=== PATIENT | female | born 2000 | race Caucasian/White ===

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

== ENCOUNTER → 2020-01-01 16:46 | Outpatient (BNVA) | payer MEDICAID, SELFPAY | PROVIDERS: Visit Provider Nurse Practitioner | DX: Z20.828 Contact with and (suspected) exposure to other viral communicable diseases (principal) | CPT/HCPCS: 87635 ==

== ENCOUNTER → 2020-01-09 09:21 | Outpatient (BNVA) | payer MEDICAID, SELFPAY | PROVIDERS: Visit Provider Nurse Practitioner Psychiatric/Mental Health | DX: F41.1 Generalized anxiety disorder (principal) | CPT/HCPCS: G0463 ==

== ENCOUNTER → 2020-01-18 08:27 | Outpatient (BNVA) | payer MEDICAID, SELFPAY | PROVIDERS: Visit Provider Counselor Professional | DX: F33.1 Major depressive disorder, recurrent, moderate (principal) | CPT/HCPCS: 90834 ==

== ENCOUNTER → 2020-01-25 08:03 | Outpatient (BNVA) | payer MEDICAID, SELFPAY | PROVIDERS: Visit Provider Counselor Professional | DX: F33.1 Major depressive disorder, recurrent, moderate (principal); F41.1 Generalized anxiety disorder | CPT/HCPCS: 90834 ==

== ENCOUNTER → 2020-02-08 08:36 | Outpatient (BNVA) | payer MEDICAID, SELFPAY | PROVIDERS: Visit Provider Counselor Professional | DX: F33.1 Major depressive disorder, recurrent, moderate (principal); F41.1 Generalized anxiety disorder | CPT/HCPCS: 90834 ==

== ENCOUNTER → 2020-02-12 11:53 | Outpatient (BNVA) | payer MEDICAID, SELFPAY | PROVIDERS: Visit Provider Nurse Practitioner Family | DX: R10.84 Generalized abdominal pain (principal) | CPT/HCPCS: 80053; 81000; 85025 ==

== ENCOUNTER 2020-02-19 08:40 | Outpatient (CLI) | payer MEDICAID, SELFPAY ==
--- NOTE | 2020-02-19 08:45 | US_ITS ---
WS: [id number] ULTRASOUND ABDOMEN LIMITED CLINICAL INFORMATION: abdominal pain, worst RUQ, 1 month post delivery COMPARISON: None. FINDINGS: Liver Size: Slightly enlarged Craniocaudal length: 16.2 cm. Echogenicity: Normal. Surface nodularity: None. Mass (size and location): None. Bile ducts Intrahepatic ducts: Normal. Common bile duct diameter: 0.4 cm. Gallbladder Normal. Gallstones: None. Gallbladder sludge: None. Gallbladder wall thickening: None. Pericholecystic fluid: None. Sonographic Vee sign: Absent. Pancreas Normal as visualized. Right kidney: Normal. Hydronephrosis: None. Size: 9.9 cm x 5.3 cm x 4.0 cm. Abdominal aorta and IVC Visualized portions are normal. Ascites: None. US/US gall bladder [id number] IMPRESSION: 1. Mild hepatomegaly measuring 16.2 CM. 2. Normal gallbladder. Normal common bile duct. 3. No hydronephrosis in right kidney.
== END 2020-02-19 08:41 | disposition home or self-care (01) ==
LOC: RAD 08:43
PROVIDERS: PCP Nurse Practitioner; Visit Provider Nurse Practitioner Family
DX: R10.11 Right upper quadrant pain (principal); R16.0 Hepatomegaly, not elsewhere classified
CPT/HCPCS: 76705

== ENCOUNTER → 2020-02-22 08:24 | Outpatient (BNVA) | payer MEDICAID, SELFPAY | PROVIDERS: PCP Nurse Practitioner; Visit Provider Counselor Professional | DX: F33.1 Major depressive disorder, recurrent, moderate (principal); F41.1 Generalized anxiety disorder | CPT/HCPCS: 90834 ==

== ENCOUNTER → 2020-02-28 08:37 | Outpatient (BNVA) | payer MEDICAID, SELFPAY | PROVIDERS: PCP Nurse Practitioner; Visit Provider Counselor Professional | DX: F33.1 Major depressive disorder, recurrent, moderate (principal); F41.1 Generalized anxiety disorder | CPT/HCPCS: 90834 ==

== ENCOUNTER → 2020-03-12 08:10 | Outpatient (BNVA) | payer MEDICAID, SELFPAY | PROVIDERS: PCP Nurse Practitioner; Visit Provider Counselor Professional | DX: F33.1 Major depressive disorder, recurrent, moderate (principal); F41.1 Generalized anxiety disorder | CPT/HCPCS: 90834 ==

== ENCOUNTER → 2020-03-20 08:52 | Outpatient (BNVA) | payer MEDICAID, SELFPAY | PROVIDERS: PCP Nurse Practitioner; Visit Provider Counselor Professional | DX: F33.1 Major depressive disorder, recurrent, moderate (principal); F41.1 Generalized anxiety disorder | CPT/HCPCS: 90832 ==

== ENCOUNTER → 2020-04-17 08:11 | Outpatient (BNVA) | payer MEDICAID, SELFPAY | PROVIDERS: PCP Nurse Practitioner; Visit Provider Counselor Professional | DX: F33.1 Major depressive disorder, recurrent, moderate (principal); F41.1 Generalized anxiety disorder | CPT/HCPCS: 90832 ==

== ENCOUNTER → 2020-05-06 09:36 | Outpatient (BNVA) | payer MEDICAID, SELFPAY | PROVIDERS: PCP Nurse Practitioner; Visit Provider Counselor Professional | DX: F33.1 Major depressive disorder, recurrent, moderate (principal); F41.1 Generalized anxiety disorder | CPT/HCPCS: 90832 ==

== ENCOUNTER → 2020-05-27 08:53 | Outpatient (BNVA) | payer MEDICAID, SELFPAY | PROVIDERS: PCP Nurse Practitioner; Visit Provider Counselor Professional | DX: F33.1 Major depressive disorder, recurrent, moderate (principal); F41.1 Generalized anxiety disorder | CPT/HCPCS: 90832; 90834 ==

== ENCOUNTER → 2020-06-05 15:12 | Outpatient (BNVA) | payer MEDICAID, SELFPAY | PROVIDERS: PCP Nurse Practitioner; Visit Provider Counselor Professional | DX: F33.1 Major depressive disorder, recurrent, moderate (principal); F41.1 Generalized anxiety disorder | CPT/HCPCS: 90834 ==

== ENCOUNTER 2020-06-13 09:20 | Outpatient (CLI) | payer MEDICAID, SELFPAY ==
--- NOTE | 2020-06-13 09:27 | NM_ITS ---
WS: [id number] NUCLEAR MEDICINE HIDA SCAN CLINICAL INFORMATION: GENERALIZED ABDOMINAL PAIN/DIARRHEA TECHNIQUE: Following intravenous administration of 7.5 mCi of technetium 99m mebrofenin, images of th e abdomen were obtained over the course of 60 minutes. Next, gallbladder ejection fraction was determ ined by obtaining preprandial and one-hour postprandial images of the gallbladder following oral melanie stion of Ensure. COMPARISON: None. FINDINGS: Normal hepatic uptake at 5 minutes. Normal hepatic excretion. Gallbladder is visualized by 10 minutes . No evidence of acute cholecystitis. Normal common bile duct and small bowel activity. No evidence o f choledocholithiasis. Gallbladder ejection fraction 46% within normal limits. No evidence of chronic cholecystitis. NM/NM hepatobiliary w phar* [id number] IMPRESSION: 1. No evidence of acute or chronic cholecystitis. 2. Gallbladder ejection fraction 46% within normal limits.
== END 2020-06-13 09:21 | disposition home or self-care (01) ==
LOC: NM 09:21
PROVIDERS: PCP Nurse Practitioner; Visit Provider Nurse Practitioner Family
DX: R10.84 Generalized abdominal pain (principal); R19.7 Diarrhea, unspecified
CPT/HCPCS: 78227; A9537

== ENCOUNTER → 2020-06-19 08:44 | Outpatient (BNVA) | payer MEDICAID, SELFPAY | PROVIDERS: PCP Nurse Practitioner; Visit Provider Counselor Professional | DX: F33.1 Major depressive disorder, recurrent, moderate (principal); F41.1 Generalized anxiety disorder | CPT/HCPCS: 90832 ==

== ENCOUNTER → 2020-10-31 13:04 | Outpatient (BNVA) | payer MEDICAID, SELFPAY | PROVIDERS: PCP Nurse Practitioner; Visit Provider Counselor Professional | DX: F33.1 Major depressive disorder, recurrent, moderate (principal); F41.1 Generalized anxiety disorder | CPT/HCPCS: 90834 ==

== ENCOUNTER → 2021-09-10 09:27 | Outpatient (BNVA) | payer MEDICAID, SELFPAY | PROVIDERS: PCP Nurse Practitioner; Visit Provider Nurse Practitioner Family | DX: R05.9 Cough, unspecified (principal); J30.89 Other allergic rhinitis; G43.909 Migraine, unspecified, not intractable, without status migrainosus | CPT/HCPCS: 87635; 87801 ==

== ENCOUNTER → 2022-10-09 15:09 | Outpatient (BNVA) | payer BC, OTHER, SELFPAY | PROVIDERS: PCP Nurse Practitioner Family; Visit Provider Nurse Practitioner Family | DX: R39.9 Unspecified symptoms and signs involving the genitourinary system (principal) | CPT/HCPCS: 81003 ==

== ENCOUNTER → 2023-05-06 14:12 | Outpatient (BNVA) | payer BC, MEDICAID, SELFPAY | PROVIDERS: PCP Nurse Practitioner Family; Visit Provider Nurse Practitioner Family | DX: R50.9 Fever, unspecified (principal) | CPT/HCPCS: 87400 ==

== ENCOUNTER → 2023-10-20 11:42 | Outpatient (BNVA) | payer BC, SELFPAY | PROVIDERS: PCP Nurse Practitioner Family; Visit Provider Nurse Practitioner | DX: J02.9 Acute pharyngitis, unspecified (principal) | CPT/HCPCS: 87070; 87880 ==

== ENCOUNTER 2023-10-30 11:27 | Emergency (ER) | payer BC, SELFPAY ==
[2023-10-30 11:37] VITALS: BP 99/67; PULSE 116; RESP 16; TEMP 37.8; O2SAT 100; BMI 23.3
--- NOTE | 2023-10-30 11:42 | CTR_ITS ---
PROCEDURE INFORMATION: Exam: CT Abdomen And Pelvis With Contrast Exam date and time: 10/30/2023 12:30 PM Age: 22 years old Clinical indication: Abdominal pain; Generalized; Additional info: Abd pain TECHNIQUE: Imaging protocol: Computed tomography of the abdomen and pelvis with contrast. Radiation optimization: All CT scans at this facility use at least one of these dose optimization techniques: automated exposure control; mA and/or kV adjustment per patient size (includes targeted exams where dose is matched to clinical indication); or iterative reconstruction. Contrast material: OMNI 350; Contrast volume: 100 ml; Contrast route: INTRAVENOUS (IV); COMPARISON: CT abdomen pelvis w con* [id number] 01/07/2019 3:40 PM RADIATION DOSE METRICS: Total DLP (mGy-cm): 357.59 FINDINGS: Liver: Normal. No mass. Gallbladder and biliary ducts: Cholecystectomy. Pancreas: Normal. No ductal dilation. Spleen: 12 cm borderline splenomegaly. Adrenal glands: Normal. No mass. Kidneys and ureters: Normal. No hydronephrosis. Stomach and bowel: There is thickening of the wall of the entire colon from cecum to rectosigmoid. A mild diffuse colitis is present. Appendix: No evidence of appendicitis. Intraperitoneal space: Unremarkable. No free air. No significant fluid collection. Vasculature: Unremarkable. No abdominal aortic aneurysm. Lymph nodes: Unremarkable. No enlarged lymph nodes. Urinary bladder: Unremarkable as visualized. Reproductive: Unremarkable as visualized. Bones/joints: Unremarkable. No acute fracture. Soft tissues: Unremarkable. CT/CT abdomen pelvis w con* [id number] IMPRESSION: Mild diffuse colitis.
--- NOTE | 2023-10-30 11:42 | XRR_ITS ---
PROCEDURE INFORMATION: Exam: XR Chest Exam date and time: 10/30/2023 12:20 PM Age: 22 years old Clinical indication: Cough and dyspnea; Additional info: Dyspnea/cough TECHNIQUE: Imaging protocol: Radiologic exam of the chest. Views: 1 view. COMPARISON: CR XR chest 2V* [id number] 02/04/2017 9:51 PM FINDINGS: Lungs: Unremarkable. No consolidation. Pleural spaces: Unremarkable. No pleural effusion. No pneumothorax. Heart/Mediastinum: Unremarkable. No cardiomegaly. Bones/joints: Unremarkable. XR/XR chest 1V portable [id number] IMPRESSION: No acute findings.
[2023-10-30 12:01] LABS: Basophils % 0.2 %; Eosinophils % 0.3 %; Lymphocytes # 0.7 10^3/uL (0.8-4.8); Lymphocytes % 5.3 %; Mean Corpuscular HGB Conc 31.8 g/dL (30-55); Mean Corpuscular Hemoglobin 29.8 pg (27-33); Mean Corpuscular Volume 93.6 fl (85-98); Mean Platelet Volume 11.8 fL (7.4-10.4); Monocytes # 1.2 10^3/uL (0.2-0.9); Monocytes % 9.4 %; Neutrophils # 10.31 10^3/uL (1.8-7.7); Neutrophils % 84.5 %; Nucleated Red Blood Cells % 0 %; Platelet Count 193 10^3/cmm (157-399); Red Cell Distribution Width 11.7 % (12.1-15.1); White Blood Count 12.22 10^3/uL (3.29-11.43)
--- NOTE | 2023-10-30 12:11 | ED_ITS ---
HPI - Abdominal Pain 2 General: Chief Complaint: Abdominal Pain Stated Complaint: abd pain Time Seen by Provider: 10/30/23 11:42 Source: patient Mode of arrival: ambulatory History of Present Illness: 22-year-old female presents emergency ro om complaining of abdominal pain. She also had some bright red blood in the stools. Began last night she had the abdominal pain for 2 to 3 days prior. She also had a fever at home. She denies any dysuria urgency or frequency states there is only a small amount of blood in the stool. States pain is worse whenever she eats she has had previous cholecystectomy no other previous abdominal surgeries she does not believe she is at this time. MD elicited complaint: abdominal pain Onset (ago): day(s) (2-3) Pain Consistency: constant Location: LLQ Severity: moderate Quality: cramping Radiation: none Exacerbating factors: nothing Relieving factors: nothing Associated Symptoms: Denies anorexia, belching, bloating, change in bowel habits, change in stool character, chills, coffee ground emesis, constipation, GI cramping, diarrhea, dyspepsia, dysuria, excessive flatus, fever(s), heartburn, hematochezia, hematuria, hematemesis, fecal incontinence, loose stools, melena, nausea, poor appetite, syncope and vomiting Related Data: Date of Last Menstrual Period: 10/04/23 Review of Systems 2 Const: Denies: fever(s) or chills Card: Denies: syncope Resp: Denies: dyspnea GI: Denies: nausea, vomiting, hematemesis, coffee ground emesis, heartburn, diarrhea, constipation, bloating, GI cramping, belching, excessive flatus, fecal incontinence, change in bowel habits, change in stool character, hematochezia or melena : Denies: dysuria or hematuria Musc: Denies: neck pain or back pain Skin/Breast: Denies: rash PFSH ED 2 PFSH: Medical History Environmental and seasonal allergies Migraine aura, persistent, intractable Psychiatric care Generalized anxiety disorder Surgical History History of tonsillectomy Family History Other Cancer Diabetes Hypertension Denies family history of Stroke Social History Smoking and tobacco/nicotine status: never used tobacco/nicotine Second hand smoke exposure: No Alcohol intake: never Substance/Drug Use: never Adopted: No Caregiver/support person: No Lives independently: Yes Household members: significant other Housing: House Marital status: Single service: No Current occupational status: employed Do you think of yourself as: Straight/Heterosexual Current gender identity: Female Female Reproductive History: Date of last menstrual period: 10/04/23 Para: 1 Physical Exam 2 Const: GENERAL APPEARANCE: cooperative and comfortable O RIENTATION/CONSCIOUSNESS: Yes awake, Yes oriented to person, Yes oriented to place and Yes oriented to time HENMT: COMMON NORMALS: normocephalic, atraumatic and hearing grossly normal bilaterally HEAD & SCALP: normocephalic and atraumatic Resp: COMMON NORMALS: normal respiratory effort, No retractions, No use of accessory muscles and clear to auscultation bilaterally AUSCULTATION: clear to auscultation bilaterally Cardio: COMMON NORMALS: regular rate, regular rhythm and No murmurs present (Cardio) RATE: regular rate RHYTHM: regular rhythm GI: COMMON NORMALS: No hepatosplenomegaly present AUSCULTATION: Yes normoactive bowel sounds PALPATION: Yes Tenderness to palpation present (GI) Details: LLQ, No Guarding due to palpation present (GI) and Yes No hepatosplenomegaly present Extremity: COMMON NORMALS: normal to inspection, capillary refill normal, no clubbing, cyanosis or edema, no calf tenderness and no pedal edema Neuro: SENSORIUM/ORIENTATION: Yes oriented to person, Yes oriented to place and Yes oriented to time Skin: COMMON NORMALS: no rashes or lesions noted GENERAL SKIN EXAM: no rashes or lesions noted Course 2 Vital Signs: Vital signs: Vital Signs Temperature 99.6 F 10/30/23 12:56 Pulse Rate 112 H 10/30/23 12:51 Respiratory Rate 16 10/30/23 11:37 Blood Pressure 118/72 10/30/23 14:07 Pulse Oximetry 98 10/30/23 12:51 Oxygen Delivery Me thod Room Air 10/30/23 11:37 MDM - Abdominal Pain Medical Decision Making Diffuse colitis on the CT I think that the source of the bleeding. Did a rectal exam. Stool for occult blood was negative. No bright red blood and no hemorrhoidal tags. Active bleeding was noted. Will discharge patient home on Cipro and Flagyl promethazine to use as needed clear liquid diet follow-up with primary care may need to get colonoscopy at a later date. If worsens return. Medical Records I reviewed the patient's medical records. Lab Data I reviewed the patient's lab results. 10/30/23 11:47 10/30/23 11:47 Labs/Radiology: Radiology Impressions Abdomen/Pelvis CT 10/30/23 11:42 IMPRESSION: Mild diffuse colitis. Chest X-Ray 10/30/23 11:42 IMPRESSION: No acute findings. Laboratory Results WBC 12.22 10^3/uL (3.29-11.43) H 10/30/23 11:47 RBC 4.70 10^6/uL (3.85-5.65) 10/30/23 11:47 Hgb 14.00 g/dL (11.27-16.99) 10/30/23 11:47 Hct 44.0 % (36-47) 10/30/23 11:47 MCV 93.6 fl (85-98) 10/30/23 11:47 MCH 29.8 pg (27-33) 10/30/23 11:47 MCHC 31.8 g/dL (30-55) 10/30/23 11:47 RDW 11.7 % (12.1-15.1) L 10/30/23 11:47 Plt Count 193 10^3/cmm (157-399) 10/30/23 11:47 MPV 11.8 fL (7.4-10.4) H 10/30/23 11:47 Neut % (Auto) 84.5 % 10/30/23 11:47 Lymph % (Auto) 5.3 % 10/30/23 11:47 [place]fl[place] % (Auto) 9.4 % 10/30/23 11:47 Eos % (Auto) 0.3 % 10/30/23 11:47 Baso % (Auto) 0.2 % 10/30/23 11:47 Neut # (Auto) 10.31 10^3/uL (1.8-7.7) H 10/30/23 11:47 Lymph # (Auto) 0.7 10^3/uL (0.8-4.8) L 10/30/23 11:47 [place] # (Auto) 1.2 10^3/uL (0.2-0.9) H 10/30/23 11:47 Eos # (Auto) 0.0 10^3/uL (0.0-0.8) 10/30/23 11:47 Baso # (Auto) 0.0 10^3/uL (0.0-0.1) 10/30/23 11:47 Nucleated RBC % (auto) 0 % 10/30/23 11:47 Nucleated RBCs # 0.0 /100WBC 10/30/23 11:47 Sodium 138 mmol/L (136-145) 10/30/23 11:47 Potassium 3.5 mmol/L (3.5-5.1) 10/30/23 11:47 Chloride 102 mmol/L (98-107) 10/30/23 11:47 Carbon Dioxide 24 mmol/L (22-29) 10/30/23 11:47 Anion Gap 15.5 (5-19) 10/30/23 11:47 BUN 7 mg/dL (6-20) 10/30/23 11:47 Creatinine 0.8 mg/dL (0.5-0.9) 10/30/23 11:47 GFR Calculation 89.7 mL/min (90-130) L 10/30/23 11:47 Glucose 113 mg/dL (65-115) 10/30/23 11:47 Calculated Osmolality 285 mOsm/kg (285-295) 10/30/23 11:47 Lactic Acid 1.3 mmol/L (0.5-2.2) 10/30/23 11:47 Calcium 8.8 mg/dL (8.5-10.5) 10/30/23 11:47 Magnesium 1.7 mg/dL (1.7-2.3) 10/30/23 11:47 Total Bilirubin 0.4 mg/dL (0.15-1.2) 10/30/23 11:47 AST 13 U/L (0-32) 10/30/23 11:47 ALT 13 U/L (0-33) 10/30/23 11:47 Alkaline Phosphatase 65 U/L (35-105) 10/30/23 11:47 Total Protein 7.3 g/dL (6.6-8.7) 10/30/23 11:47 Albumin 4.3 g/dL (3.5-5.2) 10/30/23 11:47 Globulin 3.0 g/dL (1.3-4.6) 10/30/23 11:47 Lipase 22 U/L (13-60) 10/30/23 11:47 HCG, Qual Negative (Negative) 10/30/23 11:47 Urine Color Yellow (Yellow) 10/30/23 12:47 Urine Appearance Slightly cloudy (CLEAR) 10/30/23 12:47 Urine pH 6.5 (5-7) 10/30/23 12:47 Ur Specific [place] 1.005 (1.005-1.030) 10/30/23 12:47 Urine Protein 1+ (Negative) H 10/30/23 12:47 Urine Glucose (UA) Norm (Normal) 10/30/23 12:47 Urine Ketones Negative (Negative) 10/30/23 12:47 Urine Blood Neg (Negative) 10/30/23 12:47 Urine Nitrate Negative (Negative) 10/30/23 12:47 Urine Bilirubin Neg (Negative) 10/30/23 12:47 Urine Urobilinogen Norm mg/dL (Negative) 10/30/23 12:47 Ur Leukocyte Esterase 2+ (Negative) H 10/30/23 12:47 Urine RBC None /hpf (0-2) 10/30/23 12:47 Urine WBC 25-40 /hpf (0-5) H 10/30/23 12:47 Ur Squamous Epith Cells 15-25 /hpf (0-5) H 10/30/23 12:47 Amorphous Sediment Not Reportable 10/30/23 12:47 Urine Bacteria 1+ /hpf (NONE) H 10/30/23 12:47 All radiology interpretation(s) finalized by discharge Discharge Plan Discharge Patient Disposition: Home Clinical Impression: Colitis Condition: Stable Prescriptions: New Cipro 500 mg tablet 500 mg PO BID Qty: 14 0RF metronidazole 500 mg tablet 500 mg PO BID 7 Days Qty: 14 0RF promethazine 25 mg tablet 25 mg PO Q6H PRN (Reason: nausea and vomiting) Qty: 20 0RF No Action fluoxetine [Prozac] 20 mg capsule 20 mg PO DAILY Qty: 30 2RF propranolol [Inderal LA] 60 mg capsule,extended release 24 hr 60 mg PO .at bedtime Qty: 30 2RF loratadine [Claritin] 10 mg tablet 10 mg PO DAILY Qty: 30 5RF olopatadine [Pataday Once Daily Relief] 0.2 % drops 1 drp ophthalmic (eye) DAILY Qty: 2.5 2RF Nurtec ODT 75 mg tablet,disintegrating PO ONCE PRN (Reason: migraine headache) Discharge Orders: Discharge ED (Routine); Ordered 10/30/23 Ordered By: Randy Miller Referrals: Phillips,Rae, [facility] [Primary Care Provider] - Discharge Diet: Usual diet Discharge Activity: Resume usual activity Patient Instructions: Opioid Safety, Pain Management Activity Restrictions/Additional Instructions: Thank you for choosing [facility] for your healthcare needs today. It is very important that you follow up as instructed or that you return to the Emergency Department should you have concerns or if your condition changes or worsens in any way. There is tissue with complaints of abdominal pain and an episode of bright red blood per rectum. CT of your abdomen showed colitis (infectious irritation of the colon). There is no evidence of perforation. On rectal exam there is no active bleeding and stool checked was negative for blood your hemoglobin is stable at this time. Recommend that you start a course of oral antibiotics for colitis ciprofloxacin and metronidazole both for 7 days. You can also use promethazine as needed for nausea and vomiting. Clear liquid applied for 2 to 3 days and then follow-up with your primary care doctor in the next 2 weeks to reevaluate. You may require colonoscopy at some date in the future. Coding Level of Care Code ED Orthopedic Nurse Practitioner for Joseph Okeefe
[2023-10-30 12:16] LABS: HCG, Serum Qual Negative (Negative)
[2023-10-30 12:22] LABS: Lactic Sepsis W/Reflex 1.3 mmol/L (0.5-2.2)
[2023-10-30 12:24] LABS: Alanine Aminotransferase 13 U/L (0-33); Albumin Level 4.3 g/dL (3.5-5.2); Alkaline Phosphatase 65 U/L (35-105); Anion Gap 15.5 (5-19); Aspartate Amino Transferase 13 U/L (0-32); Blood Urea Nitrogen 7 mg/dL (6-20); Calcium 8.8 mg/dL (8.5-10.5); Carbon Dioxide 24 mmol/L (22-29); Chloride 102 mmol/L (98-107); Glomerular Filtration Rate 89.7 mL/min (90-130); Glucose 113 mg/dL (65-115); Lipase 22 U/L (13-60); Magnesium 1.7 mg/dL (1.7-2.3); Osmolality Calculated 285 mOsm/kg (285-295); Potassium 3.5 mmol/L (3.5-5.1); Sodium 138 mmol/L (136-145); Total Bilirubin 0.4 mg/dL (0.15-1.2); Total Protein 7.3 g/dL (6.6-8.7)
[2023-10-30] MEDS: iohexol 350 mg/mL 500 mL Btl (per mL) IV (12:35)
[2023-10-30 12:51] VITALS: BP 100/55; PULSE 112; O2SAT 98
[2023-10-30 12:56] VITALS: TEMP 37.6
[2023-10-30 13:00] VITALS: BP 118/72
[2023-10-30 13:22] LABS: Add Urine Culture? No; Add Urine Microscopic? YES; Bacteria Urine 1+ /hpf; Bilirubin Urine Neg (Negative); Blood Urine Neg (Negative); Glucose Urine UA Norm (Normal); Ketones Urine Negative (Negative); Leukocyte Esterase Urine 2+ (Negative); Nitrate Urine Negative (Negative); Protein Urine 1+ (Negative); Specific Gravity, Urine 1.005 (1.005-1.030); Squamous Epithelial Cell Urine 15-25 /hpf (0-5); Urine Appearance Slightly Cloudy (CLEAR); Urine Color Yellow (Yellow); Urobilinogen Urine Norm (Negative); WBC Urine 25-40 /hpf (0-5); pH Urine 6.5 (5-7)
[2023-10-30 14:07] VITALS: BP 118/72
[2023-10-30] MEDS: acetaminophen 500 mg Tablet 1000 MG PO (14:07)
== END 2023-10-30 15:30 | disposition home or self-care (01) ==
PROVIDERS: Emergency Provider Family Medicine; PCP Nurse Practitioner Family
DX: K52.9 Noninfective gastroenteritis and colitis, unspecified (principal)
CPT/HCPCS: 71045; 74177; 80053; 81001; 83605; 83690; 83735; 84703; 85025; 87040; 96360; 96361; 99285; J7030; Q9967

== ENCOUNTER 2024-06-19 12:19 | Outpatient (CLI) | payer BC, MEDICAID, SELFPAY ==
--- NOTE | 2024-06-19 13:00 | US_ITS ---
WS: [id number] ULTRASOUND BREAST BILATERAL TECHNIQUE: Ultrasound bilateral breast focused area of concern. CLINICAL INFORMATION: N63.15 - Unspecified lump in the right breast, overlappin... COMPARISON: None. FINDINGS: RIGHT BREAST: Ultrasound RIGHT breast 10:00 11:00 positions patient directed. No suspicious lesions in the areas of concern. Dense underlying parenchymal tissue with fibrocystic change. LEFT BREAST: Ultrasound LEFT breast retroareolar patient directed. Dense underlying parenchymal tissue. No suspicious cystic or solid lesions. US/US breast BI limited* [id number] IMPRESSION: BI-RADS 2 benign Recommend annual screening mammography age 40
[2024-06-21 14:55] LABS: Cow's Milk (F2) IgE <0.10 kU/L; Cow's Milk Classification 0; Pork (F26) IgE 0.53 kU/L; Pork Classification 1
[2024-06-23 02:04] LABS: Immunoglobulin A 190 mg/dL (47-310); Tissue Transglutaminase AB IGA <1.0 U/mL
== END 2024-06-19 12:20 | disposition home or self-care (01) ==
PROVIDERS: Absent Provider Physician Assistant; PCP Clinical Nurse Specialist Adult Health; Visit Provider Clinical Nurse Specialist Adult Health
DX: N63.15 Unspecified lump in the right breast, overlapping quadrants (principal); R10.9 Unspecified abdominal pain
CPT/HCPCS: 76642; 82784; 83516; 86003; 86008

== ENCOUNTER → 2024-09-25 10:19 | Outpatient (BNVA) | payer BC, MEDICAID, SELFPAY | PROVIDERS: PCP Clinical Nurse Specialist Adult Health; Visit Provider Clinical Nurse Specialist Adult Health | DX: F33.1 Major depressive disorder, recurrent, moderate (principal); K29.70 Gastritis, unspecified, without bleeding | CPT/HCPCS: 82306; 82607; 84443 ==

== ENCOUNTER → 2024-10-03 10:37 | Outpatient (BNVA) | payer BC, MEDICAID, SELFPAY | PROVIDERS: PCP Clinical Nurse Specialist Adult Health; Visit Provider Clinical Nurse Specialist Adult Health | DX: J06.9 Acute upper respiratory infection, unspecified (principal) | CPT/HCPCS: 87426 ==

== ENCOUNTER → 2024-12-07 11:50 | Outpatient (BNVA) | payer BC, MEDICAID, SELFPAY | PROVIDERS: PCP Clinical Nurse Specialist Adult Health; Visit Provider Clinical Nurse Specialist Adult Health | DX: N39.0 Urinary tract infection, site not specified (principal); N30.00 Acute cystitis without hematuria | CPT/HCPCS: 81000; 87086 ==